=== PATIENT | male | born 1975 | race African-American/Black ===

== ENCOUNTER 2020-12-04 02:13 | Emergency (ER) | payer OTHER, MEDICAID ==
[~2020-12-04] VITALS: Ht 182.9 cm; Wt 93.0 kg
[2020-12-04 02:25] VITALS: BP 157/106
== END 2020-12-04 02:45 ==
LOC: ER 02:13
DX: Z13.9 Encounter for screening, unspecified (principal); I10 Essential (primary) hypertension
CPT/HCPCS: 99283